=== PATIENT | male | born 1990 | race African-American/Black ===

== ENCOUNTER 2016-12-26 20:25 | Emergency (ER) | payer OTHER, SELFPAY | END 2016-12-26 20:48 | LOC: NAV ERS 20:25 | DX: Z04.1 Encounter for examination and observation following transport accident (principal); F17.210 Nicotine dependence, cigarettes, uncomplicated; V89.2XXA Person injured in unspecified motor-vehicle accident, traffic, initial encounter | CPT/HCPCS: 99283 ==